=== PATIENT | male | born 1940 | race Caucasian/White ===

== ENCOUNTER → 2020-04-28 13:17 | Outpatient (CLI) | payer MEDICARE, SELFPAY ==
--- NOTE | 2020-04-28 13:22 | CT_ITS ---
PROCEDURE: CT HEAD/BRAIN WO CON CLINICAL INDICATION: CONFUSION AND DISORENTATION COMPARISON: No exams were available for comparison TECHNIQUE: Axial images obtained. All CT scans at the facility use one or more dose reduction, viz: automated exposure control, ma/kV adjustment per patient size (including targeted exams where dose is matched to indication, i.e. head), or iterative reconstruction technique. FINDINGS: No midline shift, mass effect, intracranial hemorrhage, hydrocephalus, or extra-axial fluid collection is evident. 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 No acute intracranial hemorrhage. Encephalomalacia changes are also present in the right occipital lobe. Postsurgical changes are present in the left mastoid sinus the calvarium has an unremarkable appearance. Unremarkable appearing right mastoid sinus. No sinus air-fluid level. IMPRESSION: No acute intracranial findings. 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
== END ==
PROVIDERS: PCP Family Medicine; Visit Provider Family Medicine
DX: F99 Mental disorder, not otherwise specified (principal)
CPT/HCPCS: 70450

== ENCOUNTER 2020-06-14 11:00 | Outpatient (RCR) | payer MEDICARE, SELFPAY | END 2020-06-14 11:05 | disposition home or self-care (01) | LOC: PT 11:00 | PROVIDERS: PCP Family Medicine; Visit Provider Family Medicine | DX: R53.1 Weakness (principal); Z74.09 Other reduced mobility | CPT/HCPCS: 97110; 97112; 97163; 97530 ==